=== PATIENT | male | born 1970 | race Caucasian/White ===

== ENCOUNTER 2022-12-27 09:15 | Observation (INO) | payer OTHER, SELFPAY ==
[2022-12-27 09:17] VITALS: BP 170/88; PULSE 97; RESP 21; TEMP 36.7; O2SAT 99; BMI 31.8
[2022-12-27 09:20] VITALS: BMI 31.8
--- NOTE | 2022-12-27 09:22 | EKG12_ITS ---
Test Reason : NEURO SX Blood Pressure : / mmHG Vent. Rate : 082 BPM Atrial Rate : 082 BPM P-R Int : 158 ms QRS Dur : 090 ms QT Int : 380 ms P-R-T Axes : 051 067 037 degrees QTc Int : 443 ms Normal sinus rhythm with sinus arrhythmia Normal ECG Confirmed by CHAD WESLEY ([id number]), associate editor VIVIEN BOSWELL ([id number]) on 01/02/2023 7:47:43 AM Referred By: Cas Bo Confirmed By:CHAD WESLEY
--- NOTE | 2022-12-27 09:22 | CT_ITS ---
STUDY: CT BRAIN WITHOUT CONTRAST REASON FOR EXAM: Male, 52 years old. Neurodeficit. Stroke alert. RADIATION DOSAGE (If Supplied By Facility): CTDIvol = ( 47.06 ) mGy, DLP = ( 907.97 ) mGycm TECHNIQUE: Transaxial CT imaging of the brain was performed without administration of intravenous contrast material. Individualized dose optimization techniques were used for this CT. COMPARISON: None. FINDINGS: PARENCHYMA: There is no acute bleed or infarct. There are normal white matter tracts. VENTRICLES: There is no hydrocephalus. MASTOID AIR CELLS AND PARANASAL SINUSES: The visualized paranasal sinuses are clear. The mastoid air cells are well aerated. BONES: There is no skull fracture. CT/STROKE Brain/Head without Cont IMPRESSION: No acute intracranial abnormality. No hydrocephalus N.B. : The above Results were Read Back by Vinny Cifuentes MD to Cas Bo MD, and understanding confirmed on 12/27/2022 09:56:54 (ET). Electronically Signed: Vinny Cifuentes MD at 9:57 EDT ,
--- NOTE | 2022-12-27 09:23 | ED.VIS.STROK ---
HPI History of Present Illness Chief Complaint: Neuro S/Sx Informant: patient Onset/Context/Timing Onset: Yesterday Narrative Narrative: Patient presents with waking up yesterday with some tingling in the left side of his face, and as the morning progressed yesterday, he also developed vertigo, ataxia when walking, trouble focusing visually on objects although he has had no visual field cuts or vision loss/diplopia/blurry, and tingling in his left upper and lower extremities. No weakness in them. No speech issues. No recent head injury or illness. He states he has had tinnitus in his left ear for about 3 days which is unusual for him. Patient states he is a heavy daily smoker. He does not have a PCP and does not see a doctor. He takes no medications. He does not do any IV drugs. [facility] Medical History Back pain Home Medications NK 12/27/22 [History Last Taken Unknown] Allergy/AdvReac Type Severity Reaction Status Date / Time No Known Allergies Allergy Verified 12/27/22 09:24 Social History Smoking Status: Current every day smoker tobacco type: cigarettes alcohol intake: current alcohol intake frequency: a few times a week Alcohol type: beer ROS ROS ED Constitutional Constitutional ED: Denies chills or fever(s) Eyes Eyes: Reports change in vision; Denies diplopia ENT ENT ED: Reports tinnitus and vertigo; Denies ear discharge, ear pain, facial pain, loss taste/smell, rhinorrhea or sore throat Cardiovascular Cardiovascular: Denies chest pain or palpitations Respiratory/Chest Respiratory/Chest: Denies cough or dyspnea Gastrointestinal Gastrointestinal: Denies abdominal pain, diarrhea, nausea or vomiting Genitourinary Genitourinary ED: Denies dysuria or hematuria Musculoskeletal Musculoskeletal: Denies back pain or neck pain Integumentary Denies abscess or rash Neurologic Neurologic: Reports paresthesias LUE and LLE; Denies headache(s) or weakness Psychiatric Psychiatric: Denies anxiety or suicidal thoughts EXAM Physical Exam Const Vital Signs: 12/27/22 09:17 12/27/22 09:53 12/27/22 10:35 Temperature 98.1 F Temperature Source Temporal Pulse Rate 97 62 Respiratory Rate 21 H 14 Blood Pressure 170/88 H 123/80 H Blood Pressure Mean 115 94 Pulse Ox 99 98 Oxygen Delivery Method Room Air Room Air Room Air Positive well nourished and well developed General Appearance ED: well developed and NAD HEENT Reports TM's clear and moist mucous membranes HEENT Narrative: No mastoid erythema, swelling, tenderness. No periauricular lymphadenopathy. normocephalic and atraumatic Tympanic Membrane ED: Yes TM's clear Eyes PERRL and EOMs intact bilaterally Neck full ROM, no lymphadenopathy and supple Neck Narrative: No carotid bruits. Resp normal respiratory effort and clear to auscultation bilaterally Cardio regular rate, regular rhythm and no murmurs GI non-tender and non-distended Auscultation: normoactive bowel sounds Palpation: soft Back/Spine no CVA tenderness General Back: other FROM Extremity normal to inspection General Extremety ED: Negative for edema, pulses abnormal or tenderness General Extremity: Negative for edema or pulses abnormal Neuro oriented x3 and CN's II-XII intact bilaterally Neuro Narrative: Normal speech. No aphasia or dysarthria. [place] Coma Scale: document GCS findings Spontaneous Obeys Commands Oriented 15 Sensorium / Orientation: awake and alert Sensory Exam: other Mild subjective decrease in sensation left upper and lower extremities, and left anabaptist but nowhere else on the face. Motor Exam: strength 5/5 throughout Skin no rashes or lesions noted and no wounds NIHSS NIHSS Initial: 1a Level of Consciousness: 0 1b LOC Questions (Score 2 if aphasic/stupor): 0 1c LOC Commands (Only score 1st attempt): 0 2 Best Gaze (If aphasic, use reflexive mvmts.): 0 3 Visual: 0 4 Facial Palsy: 0 5 Motor Arm Right (UN = amputation/fusion): 0 5 Motor Arm Left: 0 6 Motor Leg Right: 0 6 Motor Leg Left: 0 7 Limb ataxia (Only + if out of proportion): 0 8 Sensory (Aphasia/stupor=0 or 1, coma=2): 1 9 Best Language: 0 10 Dysarthria (mute, coma=2, intubated=UN): 0 11 Extinction and Inattention (only scored if +): 0 Total Score: 1 MDM MDM MDM Narrative Medical decision making narrative: CT of the head appears unremarkable no bleed or signs of an acute ischemic stroke which may not show up for some time yet since this is acute, radiology was in agreement I agree with his interpretation. The rest of his work-up is unremarkable showing good renal function, normal sinus rhythm on EKG, his blood pressure still significantly elevated, it is unknown how long this has been up since he does not see a primary care physician. My suspicion for an acute ischemic stroke here is high however some of his symptoms are consistent with peripheral vertigo as well. I think he needs to stay and have a stroke work-up. I discussed this at length with him and his significant other, he is amenable to that. Lab Data Attestation: I reviewed the patient's lab results. Labs: Laboratory Results - last 24 hr 12/27/22 12/27/22 12/27/22 09:15 09:15 09:15 WBC 8.5 RBC 5.14 Hgb 15.7 Hct 47.9 MCV 93.2 MCH 30.5 MCHC 32.8 RDW Std Deviation 43.5 RDW Coeff of Mumtaz 12.6 Plt Count 268 MPV 10.3 Immature Gran % (Auto) 0.500 Neut % (Auto) 55.3 Lymph % (Auto) 32.4 [place] % (Auto) 7.3 Eos % (Auto) 3.3 Baso % (Auto) 1.2 H Absolute Neuts (auto) 4.7 Absolute Lymphs (auto) 2.75 Nucleated RBC % 0 PT 12.9 INR 1.0 APTT 29.7 Sodium 137 Potassium 4.1 Chloride 109 H Carbon Dioxide 28.0 Anion Gap 0 L BUN 12 Creatinine 0.94 Estim Creat Clear Calc 95.68 Est GFR (MDRD) Af Amer 108 Est GFR (MDRD) Non-Af 89 BUN/Creatinine Ratio 12.8 Glucose 120 H Calcium 9.3 Troponin I High Sens 4 POC Glucose 12/27/22 09:22 WBC RBC Hgb Hct MCV MCH MCHC RDW Std Deviation RDW Coeff of Mumtaz Plt Count MPV Immature Gran % (Auto) Neut % (Auto) Lymph % (Auto) [place] % (Auto) Eos % (Auto) Baso % (Auto) Absolute Neuts (auto) Absolute Lymphs (auto) Nucleated RBC % PT INR APTT Sodium Potassium Chloride Carbon Dioxide Anion Gap BUN Creatinine Estim Creat Clear Calc Est GFR (MDRD) Af Amer Est GFR (MDRD) Non-Af BUN/Creatinine Ratio Glucose Calcium Troponin I High Sens POC Glucose 131 H Radiography Chest X-Ray - ED: 1 View, Read by ED Physician, Normal, Heart, Lungs and Mediastinum Diagnostic Testing: Clinical Impression(s) from Imaging Studies Brain CT 12/27/22 09:22 IMPRESSION: No acute intracranial abnormality. No hydrocephalus N.B. : The above Results were Read Back by Vinny Cifuentes MD to Cas Bo MD, and understanding confirmed on 12/27/2022 09:56:54 (ET). Electronically Signed: Vinny Cifuentes MD at 9:57 EDT , ADDENDUM: 12/27/22 1004 IMPRESSION: No acute intracranial abnormality. No hydrocephalus N.B. : The above Results were Read Back by Vinny Cifuentes MD to Cas Bo MD, and understanding confirmed on 12/27/2022 09:56:54 (ET). Electronically Signed: Vinny Cifuentes MD at 9:57 EDT , Chest X-Ray 12/27/22 09:40 IMPRESSION: No acute thoracic pathology. Electronically Signed: Vinny Cifuentes MD at 10:08 EDT , Rhythm Strip Rhythm Strip: Sinus Rhythm Rate: 77 Ectopy: None EKG Initial EKG: Attestation: I personally reviewed and interpreted this EKG as follows: Interpretation: Sinus Rhythm and No Acute Injury Pattern Comments: nml EKG Management Discussion w/another healthcare provider: Hospitalist and Radiologist Stroke Documentation Questions Stroke Team Activated: No (Due to timing) Was Patient considered for Endovascular Intervention?: No-CTA not indicated IV Thrombolytic Administered: No (Due to timing) Discharge Plan Dx/Rx/DC Orders Clinical Impression: Vertigo, Accelerated hypertension, Paresthesia of left arm and leg Disposition Disposition: Acute Care Hospital [facility]
--- NOTE | 2022-12-27 09:40 | RAD_ITS ---
STUDY: X-RAY CHEST REASON FOR EXAM: Male, 52 years old. Altered mental status TECHNIQUE: Frontal view of the chest COMPARISON: None. FINDINGS: The lungs are clear. There are no pleural effusions. There is no pneumothorax. The heart is normal in size. The visualized osseous structures are within normal limits. RAD/Chest 1 View IMPRESSION: No acute thoracic pathology. Electronically Signed: Vinny Cifuentes MD at 10:08 EDT ,
[2022-12-27 09:41] LABS: Bedside Glucose 131 mg/dL (74-106)
[2022-12-27 09:45] LABS: Absolute Lymphocyte Count 2.75 X10^3/uL (0.83-4.51); Absolute Neutrophil Count 4.7 X10^3/uL (2.0-7.7); Basophil% 1.2 % (0-1); Eosinophil# 0.28 X10^3/uL; Eosinophils% 3.3 % (0-5); Hematocrit 47.9 % (40-54); Hemoglobin 15.7 g/dL (13.0-16.5); Lymphocyte # 2.75 X10^3/ul (0.83-4.51); Lymphocyte % 32.4 % (19-41); Mean Corp Hgb Conc 32.8 g/dL (32-36); Mean Corpuscular Hgb 30.5 pg (27.0-32.0); Mean Corpuscular Volume 93.2 fL (80-94); Mean Platelet Vol. 10.3 fl (6.2-12.0); Monocyte# 0.62 X10^3/uL; Monocyte% 7.3 % (0-10); NRBC Flagged by Analyzer 0 % (0-5); Neutrophil # 4.71 X10^3/uL (2.7-7.7); Neutrophil % 55.3 % (47-70); Platelet Count 268 K/mm3 (150-450); RBC Distribution Width CV 12.6 % (11.6-14.6); RBC Distribution Width SD 43.5 fl (35.1-43.9); Red Blood Count 5.14 M/mm3 (4.6-6.2); White Blood Count 8.5 K/mm3 (4.4-11.0)
[2022-12-27 09:57] LABS: Prothrombin Time (Protime)PT. 12.9 SECONDS (11.7-14.9)
[2022-12-27 09:58] LABS: Partial Thromboplast Time 29.7 Seconds (24.1-36.2)
[2022-12-27 10:06] LABS: Anion Gap 0 (5-15); BUN 12 mg/dL (7-18); BUN/Creat Ratio 12.8 RATIO (10-20); Calcium,Total 9.3 mg/dL (8.5-10.1); Chloride 109 mmol/L (98-107); Creatinine, Serum 0.94 mg/dL (0.70-1.30); EST Glomerular Filtration Rate 89 mL/min (>60); Est Glom Filt Rate - Afr Amer 108 mL/min (>60); Estimated Creatinine Clearance 95.68 ml/min; Glucose 120 mg/dL (74-106); Potassium 4.1 mmol/L (3.5-5.1); Sodium Level 137 mmol/L (136-145); Troponin-I HS 4 pg/mL (3.0-78.0)
[2022-12-27 10:35] VITALS: BP 123/80; PULSE 62; RESP 14; O2SAT 98
--- NOTE | 2022-12-27 11:40 | NURSING ---
DR ANGUIANO FOR DR RUIZ
--- NOTE | 2022-12-27 11:53 | NURSING ---
PCU OBS ANGUIANO LT SIDED PARESTHESIS, VERITGO R/O CVA
--- NOTE | 2022-12-27 12:06 | PCM.HP.STD ---
HPI - General General Date of Admission: 12/27/22 Date of Service: 12/27/22 Chief Complaint: Ringing in ears and left-sided numbness. HPI Narrative JULIETA LEI, is a 52 M with a history of tobacco use who presented to [facility] 12/27 with a constellation of complaints including dizzy spells and upper left side of his face tingling since yesterday morning as well as his left leg and arm having numbness for several days and ranges air for 1 day. Given the timeline in the ED he had CT head but was not a candidate for tenecteplase so stroke call was deferred. CT head with no acute intracranial abnormality. Hospitalist called for admission for stroke work-up. Patient evaluated in the ED where he had gotten out of the bed and was sitting in a chair. He denied any past medical history aside from tobacco use and reports that this is never happened before. He was a fairly poor historian but reported that possibly as early as yesterday morning he was having dizzy spells and ringing in his ears with the upper part of his left face numb. He reports the dizzy spells are usually when he is standing up and he feels off balance, had difficulty describing them but when given several options that he thinks it may be a lightheaded feeling. When asking about his numbness on the left side of his body he said its been there for the past couple days and is getting better he said mostly his left bicep and his left thigh. Denies chest pain or shortness of breath. Does have poor hearing at baseline and reports he was told 2 months ago that he barely passed the hearing test at work. Denied any other complaints today. No recent trauma or fall. [facility] Medical History Back pain Home Medications NK 12/27/22 [History Last Taken Unknown] Allergy/AdvReac Type Severity Reaction Status Date / Time No Known Allergies Allergy Verified 12/27/22 09:24 Social History Smoking Status: Current every day smoker tobacco type: cigarettes alcohol intake: current alcohol intake frequency: a few times a week Alcohol type: beer ROS ROS Narrative General: Denies fever/chills HENT: Denies headache, does have some nasal congestion, denies sore throat EYES: Denies changes in vision Resp: Denies cough, denies shortness of breath Cardiac: Denies chest pain GI: Denies abdominal pain, denies changes in bowel, denies nausea/vomiting : Denies changes in urination Extremity: Denies swelling MSK: Denies weakness Neuro: Some numbness in upper half of the left side of face, reports numbness in left upper and lower extremity does seem to be improving. Did have episode where he felt somewhat dizzy when he stood up from the chair and got into the bed but did not fall Heme: Denies any bleeding or bruising Skin: Denies rashes Psychiatric: No complaints voiced Vital Signs Vital Signs Vital Signs: 12/27/22 09:17 12/27/22 09:53 12/27/22 10:35 Temperature 98.1 F Temperature Source Temporal Pulse Rate 97 62 Respiratory Rate 21 H 14 Blood Pressure 170/88 H 123/80 H Blood Pressure Mean 115 94 Pulse Ox 99 98 Oxygen Delivery Method Room Air Room Air Room Air Weight Weight: 103.7 kg Body Mass Index (BMI) 31.8 Physical Exam Narrative General: Alert, oriented, no apparent distress HEENT: Atraumatic, normocephalic, ear canals without obstruction, tympanic membranes unremarkable Eyes: Anicteric, normal conjunctiva, extraocular movements intact, pupils equal Neck: Supple Respiratory: Clear to auscultation bilaterally, normal respiratory effort Cardiovascular: Regular rate and rhythm GI: Soft, nontender, nondistended Extremities: No edema Musculoskeletal: Strength 5 out of 5 in right upper extremity, 5 out of 5 left upper extremity, 5 out of 5 right lower extremity, 5 out of 5 left lower extremity Neuro: No overt focal neurological deficits, cranial nerves II through XII intact, noted difference in sensation in upper and lower extremities, patient queried may be slight decrease in sensation on upper portion of the left side of his face Skin: No rashes appreciated Psych: Cooperative Results Lab / Micro Data Result Diagrams: 12/27/22 09:15 12/27/22 09:15 Labs: Laboratory Results - last 24 hr 12/27/22 09:15: WBC 8.5, RBC 5.14, Hgb 15.7, Hct 47.9, MCV 93.2, MCH 30.5, MCHC 32.8, RDW Std Deviation 43.5, RDW Coeff of Mumtaz 12.6, Plt Count 268, MPV 10.3, Immature Gran % (Auto) 0.500, Neut % (Auto) 55.3, Lymph % (Auto) 32.4, [place] % (Auto) 7.3, Eos % (Auto) 3.3, Baso % (Auto) 1.2 H, Absolute Neuts (auto) 4.7, Absolute Lymphs (auto) 2.75, Nucleated RBC % 0 12/27/22 09:15: PT 12.9, INR 1.0, APTT 29.7 12/27/22 09:15: Sodium 137, Potassium 4.1, Chloride 109 H, Carbon Dioxide 28.0, Anion Gap 0 L, BUN 12, Creatinine 0.94, Estim Creat Clear Calc 95.68, Est GFR (MDRD) Af Amer 108, Est GFR (MDRD) Non-Af 89, BUN/Creatinine Ratio 12.8, Glucose 120 H, Calcium 9.3, Troponin I High Sens 4 12/27/22 09:22: POC Glucose 131 H Rhythm Strip Rhythm Strip: Sinus Rhythm Rate: 77 Ectopy: None Radiology Impression Brain CT 12/27/22 09:22 IMPRESSION: No acute intracranial abnormality. No hydrocephalus N.B. : The above Results were Read Back by Vinny Cifuentes MD to aCs Bo MD, and understanding confirmed on 12/27/2022 09:56:54 (ET). Electronically Signed: Vinny Cifuentes MD at 9:57 EDT , ADDENDUM: 12/27/22 1004 IMPRESSION: No acute intracranial abnormality. No hydrocephalus N.B. : The above Results were Read Back by Vinny Cifuentes MD to Cas Bo MD, and understanding confirmed on 12/27/2022 09:56:54 (ET). Electronically Signed: Vinny Cifuentes MD at 9:57 EDT , Chest X-Ray 12/27/22 09:40 IMPRESSION: No acute thoracic pathology. Electronically Signed: Vinny Cifuentes MD at 10:08 EDT , Assessment & Plan Assessment/Plan (1) Paresthesia of left arm and leg: PLAN: Plan #Neurological deficits/left upper and lower extremity numbness and tingling, upper portion of left side of face tingling/tinnitus/unsteady -Admit to tele -CT head w/ no acute abnormality -MRI/MRA -NIH q4hr -asa, statin -Echo w/ bubble study -PT/OT/Speech eval -Hold BP medications to allow for permissive hypertension for 24 hours unless SBP greater than 220 or DBP greater than 120 or until stroke is ruled out -Lovenox for DVT prophylaxis #Tobacco use -Advise cessation -Patient refused nicotine replacement #DVT ppx: Lovenox subcu Rebekah Fowler MD Time spent in the patient's overall evaluation,decision-making process, review of diagnostic data, adjustment of management, discussion with other providers, nursing nursing and ancillary staff involved in patient's care documentation, 60 minutes Charges/Coding Visit Charges Inpatient E&M: 77900 Init Hosp L2
--- NOTE | 2022-12-27 12:11 | ECHOD_ITS ---
Reason For Study: TIA/STROKE Procedure This was a 2D Doppler, Color Flow transthoracic echocardiogram. Exam performed portable in patient room. Left Ventricle Normal size and thickness. The left ventricular ejection fraction is 60 %. Normal diastololic function. Right Ventricle Normal right ventricle. Atria The left and right atria are normal. Bubble contrast study is negative for PFO/ASD. Mitral Valve The mitral valve is structurally normal. No prolapse or stenosis seen. Tricuspid Valve Normal tricuspid valve. Aortic Valve Normal aortic valve. Pulmonic Valve The pulmonic valve is not well visualized. Great Vessels Normal sized aortic root. Pericardium/Pleural No pericardial effusion. Medication Performed a rapid injection of agitated mix of 9 cc saline and 1cc air to assess for atrial septal defect. MMode/2D Measurements & Calculations LVIDd: 4.6 cm IVSd: 1.2 cm Ao root diam: 3.4 cm LVIDs: 3.5 cm LVPWd: 1.3 cm RVDd: 3.6 cm FS: 22.9 % LAV(MOD-bp): 66.2 ml LVAd ap4: 31.2 cm2 SV(MOD-sp4): 48.5 ml LAV(MOD-bp) Indexed: 30.0 ml/m2 LVLd ap4: 9.3 cm LAV(MOD-sp2): 64.9 ml EDV(MOD-sp4): 87.4 ml LAV(MOD-sp4): 65.7 ml EDV(sp4-el): 88.8 ml LVAs ap4: 18.6 cm2 LVLs ap4: 7.6 cm ESV(MOD-sp4): 39.0 ml ESV(sp4-el): 38.7 ml EF(MOD-sp4): 55.4 % EF(sp4-el): 56.4 % SV(sp4-el): 50.1 ml LA A4 area: 23.1 cm2 LA dimension(2D): 4.0 cm RA A4 area: 22.6 cm2 Time Measurements MV dec time: 0.16 sec Doppler Measurements & Calculations MV E max robbie: 55.2 cm/sec Lat Peak E' Robbie: 18.2 cm/sec Med Peak E' Robbie: 12.9 cm/sec MV A max robbie: 45.0 cm/sec E/E' lat: 3.0 E/E' med: 4.3 MV E/A: 1.2 MV V2 max: 74.9 cm/sec MV dec slope: 348.6 cm/sec2 Ao V2 max: 128.8 cm/sec MV max P.2 mmHg Ao max P.6 mmHg MV V2 mean: 40.9 cm/sec Ao V2 mean: 82.6 cm/sec MV mean P.79 mmHg Ao mean P.2 mmHg MV V2 VTI: 27.0 cm Ao V2 VTI: 27.8 cm AV (velocity ratio): 0.69 LV V1 max: 97.0 cm/sec PA V2 max: 108.8 cm/sec LV V1 max P.9 mmHg PA V2 mean: 73.3 cm/sec LV V1 mean P.9 mmHg LV V1 mean: 62.7 cm/sec LV V1 VTI: 19.3 cm ECHO/Echo Complete Interpretation Summary The left ventricular ejection fraction is 60 %. Bubble contrast study is negative for PFO/ASD. Ordering Physician: Rebekah Fowler Referring Physician: Cas Bo Performed By: Ritika Yang RCS
[2022-12-27 12:13] VITALS: BP 126/84; PULSE 20; RESP 71; TEMP 36.6; O2SAT 98
[2022-12-27 12:17] VITALS: BMI 31.1
[2022-12-27 12:27] VITALS: BP 128/92; PULSE 66; RESP 16; TEMP 36.6; O2SAT 98
[2022-12-27 12:40] LABS: Alcohol, Blood (Medical)-Serum < 3.0 mg/dL
[2022-12-27 12:44] LABS: AST(SGOT) 19 U/L (15-37); Alanine Aminotransfer ALT/SGPT 34 U/L (16-61); Alkaline Phosphatase 68 U/L (45-117); Bilirubin, Direct 0.13 mg/dL (0.00-0.30); Globulin 3.7 g/dL (2.2-4.2); Protein, Total 7.7 g/dL (6.4-8.2)
--- NOTE | 2022-12-27 15:05 | MRI_ITS ---
STUDY: MRA OF THE HEAD WITHOUT CONTRAST REASON FOR EXAM: Male, 52 years old. cva r/o TECHNIQUE: 3-D [id number] (TOF) imaging was performed with MIPs. The study was performed unenhanced. COMPARISON: None. FINDINGS: Normal bilateral petrous carotid arteries. Normal right cavernous carotid artery with a normal supraclinoid bifurcation. Normal left cavernous carotid artery with a normal supraclinoid bifurcation. Normal right A1 segments of the anterior cerebral artery. Normal left A1 segments of the anterior cerebral artery. Normal intact anterior communicating artery (ACOM). Normal bilateral A2 segments of the anterior cerebral arteries. Normal right M1 and M2 segments of the middle cerebral arteries, with a normal M1 bifurcation. Normal left M1 and M2 segments of the middle cerebral arteries, with a normal M1 bifurcation. Normal right posterior communicating artery (PCOM). [Left posterior communicating artery not visualized consistent with normal variant Normal bilateral vertebral arteries. Normal basilar artery with a normal basilar bifurcation. The visualized bilateral superior cerebellar (SCA) arteries are normal. Normal bilateral P1, P2 and visualized P3 segments of the posterior cerebral arteries. There is no demonstrated aneurysm of the viejas of [place]. There is no major vessel occlusion or hemodynamically significant stenosis. There is no demonstrated abnormality of the visualized brain. MRI/MRA Head ONLY without Contrast IMPRESSION: Normal MRA of the head Electronically Signed: Lino Dickey MD at 16:39 EDT ,
--- NOTE | 2022-12-27 15:20 | MRI_ITS ---
STUDY: MRI BRAIN WITHOUT CONTRAST REASON FOR EXAM: Male, 52 years old. cva r/o TECHNIQUE: Standardized multiplanar fat and water weighted pulse sequences were obtained. COMPARISON: CT of the brain December 27, 2022 FINDINGS: Normal size of the ventricles and extra-axial spaces for the patient''s age. Mild nonspecific periventricular white matter disease without mass effect or restricted diffusion.. Normal bilateral basal ganglia. Normal thalami. There is no extra-axial fluid accumulation. Normal flow voids within the major intracranial circulation suggesting patency by spin echo criteria. Normal sella turcica, pituitary gland, infundibular stalk, optic chiasm and hypothalamus. Normal tectal plate and pineal gland. Normal midbrain, azael and medulla. Normal cerebellum. Normal basal cisterns. Normal bilateral temporal bones. Normal bilateral internal auditory canals. No demonstrated orbital abnormality, within the constraints of a routine brain study. Mild mucosal thickening of the ethmoid air cells bilaterally. Normal calvarium and skull base. Normal visualized soft tissue structures. Normal visualized upper cervical spine. MRI/Brain without Contrast IMPRESSION: Mild nonspecific periventricular white matter disease most likely due to chronic small vessel ischemic changes in patient of this age although cannot definitively exclude nonspecific demyelinating disease inflammatory disease or prior trauma. No evidence for obstructive hydrocephalus mass or acute infarct Electronically Signed: Lino Dickey MD at 16:39 EDT ,
--- NOTE | 2022-12-27 15:49 | MRI_ITS ---
STUDY: MRA NECK WITHOUT CONTRAST REASON FOR EXAM: Male, 52 years old. cva r/o TECHNIQUE: Source images were obtained, MIPs were performed. The study was performed unenhanced. COMPARISON: None. FINDINGS: RIGHT CAROTID ARTERIES: Normal right common carotid artery (CCA). Normal right common carotid bulb. Normal origin of the right internal carotid (ICA) artery without a hemodynamically significant stenosis. Normal visualized cervical portion of the right internal carotid artery. Normal origin of the right external carotid artery (ECA). LEFT CAROTID ARTERIES: Normal left common carotid artery (CCA). Normal left common carotid bulb. Normal origin of the left internal carotid (ICA) artery without a hemodynamically significant stenosis. Normal visualized cervical portion of the left internal carotid artery. Normal origin of the left external carotid artery (ECA). VERTEBRAL ARTERIES: Normal antegrade flow within the bilateral vertebral artery without a hemodynamically significant stenosis. MRI/MRA Neck without Contrast IMPRESSION: Normal bilateral cervical carotid and vertebral arteries. Electronically Signed: Lino Dickey MD at 16:40 EDT ,
[2022-12-27 16:30] VITALS: BP 116/73; PULSE 86; RESP 16; TEMP 36.7; O2SAT 97
[2022-12-27 16:51] VITALS: BMI 31.1
--- NOTE | 2022-12-27 18:15 | TELEMED_ITS ---
[facility] Tele[facility] has confirmed receipt of a request for visit. This document confirms receipt of the order initiating the consult. To find the results of the consultation, please view the patient's reports for the scanned Telemed Consult.
[2022-12-27 22:28] VITALS: BP 130/64; PULSE 78; RESP 16; TEMP 36.7; O2SAT 97
[2022-12-27] MEDS: Atorvastatin Calcium 80 MG Tablet PO (22:38)
[2022-12-28 03:40] VITALS: BP 130/72; PULSE 70; RESP 15; TEMP 36.5; O2SAT 97
[2022-12-28 05:09] LABS: Absolute Lymphocyte Count 2.12 X10^3/uL (0.83-4.51); Absolute Neutrophil Count 4.3 X10^3/uL (2.0-7.7); Basophil# 0.07 X10^3/uL; Basophil% 0.9 % (0-1); Eosinophil# 0.33 X10^3/uL; Eosinophils% 4.4 % (0-5); Hematocrit 45.2 % (40-54); Hemoglobin 14.8 g/dL (13.0-16.5); Lymphocyte # 2.12 X10^3/ul (0.83-4.51); Lymphocyte % 28.3 % (19-41); Mean Corp Hgb Conc 32.7 g/dL (32-36); Mean Corpuscular Hgb 30.4 pg (27.0-32.0); Mean Corpuscular Volume 92.8 fL (80-94); Mean Platelet Vol. 9.6 fl (6.2-12.0); Monocyte# 0.64 X10^3/uL; Monocyte% 8.5 % (0-10); NRBC Flagged by Analyzer 0 % (0-5); Neutrophil # 4.29 X10^3/uL (2.7-7.7); Neutrophil % 57.4 % (47-70); Platelet Count 238 K/mm3 (150-450); RBC Distribution Width CV 12.7 % (11.6-14.6); RBC Distribution Width SD 43.4 fl (35.1-43.9); Red Blood Count 4.87 M/mm3 (4.6-6.2); White Blood Count 7.5 K/mm3 (4.4-11.0)
[2022-12-28 05:48] LABS: Anion Gap 0 (5-15); BUN 15 mg/dL (7-18); BUN/Creat Ratio 17.8 RATIO (10-20); Calcium,Total 9.1 mg/dL (8.5-10.1); Chloride 111 mmol/L (98-107); Cholesterol 235 mg/dL (200); Creatinine, Serum 0.84 mg/dL (0.70-1.30); EST Glomerular Filtration Rate 101 mL/min (>60); Est Glom Filt Rate - Afr Amer 122 mL/min (>60); Estimated Creatinine Clearance 107.07 ml/min; Glucose 120 mg/dL (74-106); High Density Lipoprotein 30 mg/dL; Potassium 4.2 mmol/L (3.5-5.1); Sodium Level 139 mmol/L (136-145); Triglycerides 277 mg/dL; Very Low Density Lipoprotein 55 mg/dL (5-40)
[2022-12-28 07:33] VITALS: BMI 31.1
[2022-12-28 09:10] VITALS: BP 131/76; PULSE 72; RESP 18; TEMP 36.8; O2SAT 100
[2022-12-28] MEDS: Enoxaparin 40 MG/0.4 ML Syringe SC (09:12)
[2022-12-28] MEDS: Aspirin 81 MG TAB.CHEW PO (09:12)
[2022-12-28 09:41] VITALS: O2SAT 95
--- NOTE | 2022-12-28 11:01 | CASEMGMT ---
RN CM NOTE: Per Dr Fowler, pt to be discharged home today. RN CM to room. Introduced self and role. Pt denies having any discharge planning needs or concerns. Shea BSN RN CM
--- NOTE | 2022-12-28 11:54 | PCM.DC ---
Discharge Instructions Diet Discharge Diet: - (DASH diet) Activity Discharge Activity: Return to Normal Activity Follow Up Care Test Results: Test results from this visit will be discussed in further detail at your follow-up appointment, if applicable. Discharge Plan Admission Admit Date/Time: 12/27/22 12:06 Primary Reason for Your Visit: Ringing in ears and left sided numbness Attending Provider: Rebekah Fowler Primary Care Provider: Care Physician,No Primary Instructions Forms: Work Excuse Patient Instructions: ED Vertigo, Unspecified Additional Instructions / Restrictions: DISCHARGE INSTRUCTIONS PLEASE READ - You will be discharged on 81 mg aspirin daily, please take this as prescribed -You are also found to have elevated cholesterol and a prescription for atorvastatin to help decrease your cholesterol was sent into the [facility] here in [place] -A prescription for meclizine 25 mg as needed will also be sent to your pharmacy in the event dizziness returns -Please follow-up with neurology upon discharge, please call Dr. Lock's office upon discharge to schedule hospital follow-up appointment ( [phone]) -Please follow-up with ENT (ear nose throat) upon discharge. If you are not already established with an ear nose throat doctor you can follow-up with [facility]. Please call [phone] to schedule an appointment. -We will be very important that you establish with a primary care physician upon discharge. If you do not already have a primary care physician you would like to establish with we can provide you with a list of local primary care physicians. Discharge Orders/Prescriptions Prescriptions: New aspirin 81 mg Tablet,Chewable 81 mg PO BREAKFAST 30 Days Qty: 30 2RF meclizine 25 mg tablet 25 mg PO TID Qty: 14 0RF atorvastatin 80 mg tablet 80 mg PO DAILY 30 Days Qty: 30 2RF Referrals / Follow Up: Nicolás Hansen MD [[facility] Staff - Active Staff] - See Referral Note (Please follow-up with ENT (ear nose throat) upon discharge. If you are not already established with an ear nose throat doctor you can follow-up with [facility]. Please call [phone] to schedule an appointment.) Nakul Lock MD [Non-Staff -Ordering Privileges] - See Referral Note ( Please follow-up with neurology upon discharge, please call Dr. Lock's office upon discharge to schedule hospital follow-up appointment )) Care Physician,No Primary [Primary Care Provider] - Within 1 Week Disposition Disposition (needs filled in before D/C Order can be placed): Home, Self Care
--- NOTE | 2022-12-28 11:55 | DS.PCM_ITS ---
Providers Date of Admission: 12/27/22 Date of Discharge: 12/28/22 Primary Care Physician: No Primary Care Phys Reason For Visit: R/O CVA Diagnosis Discharge Diagnosis (1) Paresthesia of left arm and leg: Status: Acute Code(s): R20.2 - Paresthesia of skin Plan #Tinnitus #Dizziness #Left sided paraesthesias resolved #Tobacco use Medications at Discharge Home Medications aspirin 81 mg chewable tablet 81 mg PO BREAKFAST 30 days #30 tabs 12/28/22 atorvastatin 80 mg tablet 80 mg PO DAILY 30 days #30 tabs 12/28/22 meclizine 25 mg tablet 25 mg PO TID #14 tabs 12/28/22 Hospital Course Procedures Transthoracic echo and - Summary of Care Provided Minutes Spent on Discharge: 31 Hospital Course: JULIETA LEI, is a 52 M with a history of tobacco use who presented to [facility] 12/27 with a constellation of complaints including dizzy spells and upper left side of his face tingling as well as left arm and leg numbness for 1 day. Given the timeline in the ED he had CT head but was not a candidate for tenecteplase so stroke call was deferred.? CT head with no acute intracranial abnormality.? Hospitalist called for admission for stroke work-up. MRI/MRA no acute abnormalities, echo w/ negative bubble study. Neuro evaluated and recommended Aspirin 81mg, lipid panel, quick smoking, and mexlizine prn if dizziness returns. On day of discharge patient reported he does still have some ringing in his ears but other symptoms have resolved. Denied other complaints. Discharge instructions as followed: - You will be discharged on 81 mg aspirin daily, please take this as prescribed -You are also found to have elevated cholesterol and a prescription for atorvastatin to help decrease your cholesterol was sent into the [facility] here in [place] -A prescription for meclizine 25 mg as needed will also be sent to your pharmacy in the event dizziness returns -Please follow-up with neurology upon discharge, please call Dr. Lock's office upon discharge to schedule hospital follow-up appointment ( [phone]) -Please follow-up with ENT (ear nose throat) upon discharge.? If you are not already established with an ear nose throat doctor you can follow-up with [facility].? Please call [phone] to schedule an appointment. -We will be very important that you establish with a primary care physician upon discharge.? If you do not already have a primary care physician you would like to establish with we can provide you with a list of local primary care physicians. Physical Exam Narrative General: Alert, oriented, no apparent distress HEENT: Atraumatic, normocephalic Eyes: Anicteric, normal conjunctiva, extraocular movements grossly intact Neck: Supple Respiratory: Clear to auscultation bilaterally, normal respiratory effort Cardiovascular: Regular rate and rhythm GI: Soft, nontender, nondistended Extremities: No edema Musculoskeletal: Moving all extremities Neuro: No overt focal neurological deficits Skin: No rashes appreciated Psych: Cooperative Weight / BMI Weight Weight: 101.2 kg Body Mass Index (BMI) 31.1 ABG / Lab / Microbiology Data Result Diagrams: 12/28/22 05:00 12/28/22 05:00 Laboratory: Laboratory Results - last 24 hr 12/27/22 09:15: Total Bilirubin 0.50, Direct Bilirubin 0.13, AST 19, ALT 34, Alkaline Phosphatase 68, Total Protein 7.7, Albumin 4.0, Globulin 3.7 12/27/22 09:15: Ethyl Alcohol < 3.0 12/28/22 05:00: WBC 7.5, RBC 4.87, Hgb 14.8, Hct 45.2, MCV 92.8, MCH 30.4, MCHC 32.7, RDW Std Deviation 43.4, RDW Coeff of Mumtaz 12.7, Plt Count 238, MPV 9.6, Immature Gran % (Auto) 0.500, Neut % (Auto) 57.4, Lymph % (Auto) 28.3, [place] % (Auto) 8.5, Eos % (Auto) 4.4, Baso % (Auto) 0.9, Absolute Neuts (auto) 4.3, Absolute Lymphs (auto) 2.12, Nucleated RBC % 0 12/28/22 05:00: Sodium 139, Potassium 4.2, Chloride 111 H, Carbon Dioxide 28.0, Anion Gap 0 L, BUN 15, Creatinine 0.84, Estim Creat Clear Calc 107.07, Est GFR (MDRD) Af Amer 122, Est GFR (MDRD) Non-Af 101, BUN/Creatinine Ratio 17.8, Glucose 120 H, Calcium 9.1, Triglycerides 277 H, Cholesterol 235 H, LDL Cholesterol 150 H, VLDL Cholesterol 55 H, HDL Cholesterol 30 L, TSH 1.70 Radiography Diagnostic Testing: Radiology Impression Echocardiogram 12/27/22 12:11 Interpretation Summary The left ventricular ejection fraction is 60 %. Bubble contrast study is negative for PFO/ASD. Ordering Physician: Rebekah Fowler Referring Physician: Cas Bo Performed By: Ritika Yang RCS Head MRA 12/27/22 15:05 IMPRESSION: Normal MRA of the head Electronically Signed: Lino Dickey MD at 16:39 EDT , Brain MRI 12/27/22 15:20 IMPRESSION: Mild nonspecific periventricular white matter disease most likely due to chronic small vessel ischemic changes in patient of this age although cannot definitively exclude nonspecific demyelinating disease inflammatory disease or prior trauma. No evidence for obstructive hydrocephalus mass or acute infarct Electronically Signed: Lino Dickey MD at 16:39 EDT , Neck MRA 12/27/22 15:49 IMPRESSION: Normal bilateral cervical carotid and vertebral arteries. Electronically Signed: Lino Dickey MD at 16:40 EDT , D/C Instructions Discharge Diet: - (DASH diet) Meaningful Use Info Meaningful Use Diagnoses (Choose all that apply): None applicable Discharge Plan Admission Admit Date/Time: 12/27/22 12:06 Primary Reason for Your Visit: Ringing in ears and left sided numbness Attending Provider: Rebekah Fowler Primary Care Provider: Care Physician,No Primary Instructions Forms: Work Excuse Patient Instructions: ED Vertigo, Unspecified Additional Instructions / Restrictions: DISCHARGE INSTRUCTIONS PLEASE READ - You will be discharged on 81 mg aspirin daily, please take this as prescribed -You are also found to have elevated cholesterol and a prescription for atorvastatin to help decrease your cholesterol was sent into the [facility] here in [place] -A prescription for meclizine 25 mg as needed will also be sent to your pharmacy in the event dizziness returns -Please follow-up with neurology upon discharge, please call Dr. Lock's office upon discharge to schedule hospital follow-up appointment ) -Please follow-up with ENT (ear nose throat) upon discharge. If you are not already established with an ear nose throat doctor you can follow-up with [facility]. Please call [phone] to schedule an appointment. -We will be very important that you establish with a primary care physician upon discharge. If you do not already have a primary care physician you would like to establish with we can provide you with a list of local primary care physicians. Discharge Orders/Prescriptions Prescriptions: New aspirin 81 mg Tablet,Chewable 81 mg PO BREAKFAST 30 Days Qty: 30 2RF meclizine 25 mg tablet 25 mg PO TID Qty: 14 0RF atorvastatin 80 mg tablet 80 mg PO DAILY 30 Days Qty: 30 2RF Referrals / Follow Up: Nicolás Hansen MD [[facility] Staff - Active Staff] - See Referral Note (Please follow-up with ENT (ear nose throat) upon discharge. If you are not already established with an ear nose throat doctor you can follow-up with [facility]. Please call [phone] to schedule an appointment.) Nakul Lock MD [Non-Staff -Ordering Privileges] - See Referral Note ( Please follow-up with neurology upon discharge, please call Dr. Lock's office upon discharge to schedule hospital follow-up appointment )) Care Physician,No Primary [Primary Care Provider] - Within 1 Week Disposition Disposition (needs filled in before D/C Order can be placed): Home, Self Care Charges/Coding Visit Charges Inpatient E&M: 15982 Disch Hosp >30min
[2022-12-28 12:02] VITALS: BP 131/76; PULSE 72; RESP 18; TEMP 36.8; O2SAT 100
== END 2022-12-28 11:54 | disposition home or self-care (01) ==
LOC: ED 10:34 → PCU 12:07
PROVIDERS: Admitting Provider Internal Medicine; Emergency Provider Emergency Medicine; Referring Provider Emergency Medicine; Visit Provider Internal Medicine
DX: R20.2 Paresthesia of skin (principal); R42 Dizziness and giddiness; H92.10 Otorrhea, unspecified ear; E78.00 Pure hypercholesterolemia, unspecified; F17.210 Nicotine dependence, cigarettes, uncomplicated; I10 Essential (primary) hypertension
CPT/HCPCS: 99285; 36415; 70450; 70544; 70547; 70551; 71045; 80048; 80061; 80076; 82077; 82962; 84443; 84484; 85025; 85610; 85730; 93005; 93306; 94762; 96372; 99221; A4216; G0378